=== PATIENT | male | born 1970 | race Caucasian/White ===

== ENCOUNTER 2019-01-28 13:39 | Emergency (ER) | payer OTHER ==
[2019-01-28 14:40] LABS: #Basophils 0.1 thou/uL (0.0-0.2); #Eosinphils 0.3 thou/uL (0.0-0.7); #Lymphocytes 2.1 thou/uL (1.20-3.40); #Monocytes 0.5 thou/uL (0.11-0.59); %Basophils 0.6 % (0.0-1.0); %Eosinophils 3.3 % (0.0-10.0); %Lymphocytes 26.7 % (21.0-51.0); %Monocytes 6.3 % (0.0-10.0); %Neutrophils 63.1 % (42.0-75.0); Hemoglobin 14.1 g/dL (14.0-18.0); Mean Corpuscular HGB CONC 32.9 g/dL (32.0-36.0); Mean Corpuscular Hemoglobin 28.4 pg (27.0-31.0); Mean Corpuscular Volume 86.1 fL (78.0-98.0); Mean Platelet Volume 6.7 fL (7.4-10.4); Platelet Count 211 thou/uL (130-400); RBC Distribution Width 11.7 % (11.5-14.5); Red Blood Cell (RBC) Count 4.96 mill/uL (4.70-6.10); White Blood Cell (WBC) Count 7.9 thou/uL (4.8-10.8)
[2019-01-28 15:02] LABS: Anion Gap 13 mmol/L (10-20); BUN (Urea Nitrogen) 23 mg/dL (8.9-20.6); Calc. Creatinine Clearance 0 mL/min (70-130); Calcium 10.2 mg/dL (7.8-10.44); Carbon Dioxide 26 mmol/L (22-29); Chloride 100 mmol/L (98-107); Estimated GFR-MDRD 34; Glucose 105 mg/dL (70-105); Potassium 4.2 mmol/L (3.5-5.1); Sodium 135 mmol/L (136-145)
[2019-01-28 15:02] LABS: Bacteria/HPF None Seen HPF (None Seen); Bilirubin Negative (Negative); Blood, Urine 2+ (Negative); Calcium Oxalate Crystals 2+ HPF (None Seen); Clarity Clear (Clear); Glucose, Urine (Dipstick) Normal (Negative); Leukocyte Negative Leu/uL (Negative); Mucous/LPF Rare LPF (<2+); Nitrite Negative (Negative); Protein, Urine (Dipstick) 20 mg/dL (Neg-Trace); Squamous Epithelial 0-3 HPF (0-3); Urobilinogen Normal mg/dL (Less than 2)
[2019-01-28] MEDS ORDERED: Morphine 4 MG/ML VIAL ONE (15:39)
[2019-01-28] MEDS ORDERED: Metoclopramide HCl 10 MG/2 ML VIAL ONE (15:40)
--- NOTE | 2019-01-28 16:05 | CT ---
CT OF THE ABDOMEN AND PELVIS WITHOUT IV CONTRAST INDICATION: Left-sided flank pain COMPARISON: None FINDINGS: The lack of IV contrast limits evaluation of the solid organs of the abdomen and pelvis. ABDOMEN: Lung bases: Clear Liver: Fatty infiltration Gallbladder: Normal appearing. Pancreas: Normal. Adrenal glands: Normal. Spleen: Normal. Kidneys: There is mild left hydronephrosis. There is a 4 mm proximal left ureteral calculus. There is a 1.1 cm exophytic hyperdense lesion off the lower pole of the left kidney. There is a 1 cm exophytic hyperdense lesion off the superior pole of the left kidney. There is a small 1.4 cm hypoden se involving superior pole left kidney and cannot further characterize. Retroperitoneum of the upper abdomen: No lymphadenopathy or free fluid is identified. Additional findings: None. Pelvis: Small and large bowel: There is a moderate amount of retained stool within the colon Bladder: Normal. Rectal and perirectal soft tissues:Normal. Reproductive structures: Normal. Free fluid in pelvis: No free fluid is evident. Lymphadenopathy pelvis: No lymphadenopathy is evident. Osseous structures: No acute osseous abnormality. No destructive osteolytic or osteoblastic lesion i s identified. There is scattered degenerative and osteoarthritic changes. IMPRESSION: 1. 4 mm proximal left ureteral calculus with mild left hydronephrosis. 2. Left renal lesions require further evaluation. Renal ultrasound is recommended for additional south acterization. 3. Fatty liver 4. Moderate amount of retained stool within the colon
== END 2019-01-28 17:10 | disposition home or self-care (01) ==
LOC: ERS 13:39
DX: N13.2 Hydronephrosis with renal and ureteral calculous obstruction (principal); F17.210 Nicotine dependence, cigarettes, uncomplicated
CPT/HCPCS: 74176; 80048; 81003; 81015; 85025; 87040; 96361; 96374; 96375; J2270; J2765

== ENCOUNTER 2019-02-20 12:54 | Outpatient (CLI) | payer OTHER ==
--- NOTE | 2019-02-20 13:23 | ULT ---
Renal sonogram HISTORY: Abnormal CT. Hydronephrosis. Cysts. FINDINGS: Right kidney measures up to 11.7 cm. Normal appearance. No hydronephrosis. Liver is hyperec hoic. Left kidney measures up to 11.8 cm. No hydronephrosis. A 1.2 cm cyst projects laterally from the infe rior pole. At the superior pole, and oval cystic lesion measures up to 1.6 cm and contains some internal echoes. Probable septation. Urinary bladder is incompletely distended. IMPRESSION: 2 renal cysts. Within the superior pole cyst, some internal septation is apparent. Please consider short-term follow-up CT kidneys, with and without IV contrast, for evaluation of possible soft tissue component. Hepatic steatosis.
== END 2019-02-20 12:55 | disposition home or self-care (01) ==
LOC: SCSULT 12:54
PROVIDERS: ATTEND Urology
DX: N28.9 Disorder of kidney and ureter, unspecified (principal); N28.1 Cyst of kidney, acquired; K76.0 Fatty (change of) liver, not elsewhere classified
CPT/HCPCS: 76770

== ENCOUNTER 2019-09-25 08:24 | Day surgery (SDC) | payer MEDICARE, OTHER ==
[2019-09-22 10:38] VITALS: BMI 44.3
[2019-09-25 09:23] LABS: #Basophils 0.1 thou/uL (0.0-0.2); #Eosinphils 0.4 thou/uL (0.0-0.7); #Lymphocytes 2.9 thou/uL (1.20-3.40); #Monocytes 0.6 thou/uL (0.11-0.59); #Neutrophils 4.3 thou/uL (1.40-6.50); %Basophils 1.1 % (0.0-1.0); %Eosinophils 4.8 % (0.0-10.0); %Lymphocytes 34.7 % (21.0-51.0); %Monocytes 7.2 % (0.0-10.0); %Neutrophils 52.2 % (42.0-75.0); Hemoglobin 14.9 g/dL (14.0-18.0); Mean Corpuscular HGB CONC 34.1 g/dL (32.0-36.0); Mean Corpuscular Hemoglobin 29.7 pg (27.0-31.0); Mean Corpuscular Volume 87.2 fL (78.0-98.0); Mean Platelet Volume 6.9 fL (7.4-10.4); Platelet Count 232 thou/uL (130-400); RBC Distribution Width 11.7 % (11.5-14.5); Red Blood Cell (RBC) Count 5.01 mill/uL (4.70-6.10); White Blood Cell (WBC) Count 8.3 thou/uL (4.8-10.8)
[2019-09-25 09:45] LABS: Anion Gap 13 mmol/L (10-20); BUN (Urea Nitrogen) 11 mg/dL (8.9-20.6); Calc. Creatinine Clearance 177 mL/min (70-130); Calcium 9.3 mg/dL (7.8-10.44); Carbon Dioxide 20 mmol/L (22-29); Chloride 108 mmol/L (98-107); Estimated GFR-MDRD 76; Glucose 100 mg/dL (70-105); Potassium 4.2 mmol/L (3.5-5.1); Sodium 137 mmol/L (136-145)
[2019-09-25] MEDS ORDERED: Midazolam HCl 2 mg/2 ml Vial ONE ×2 (10:29→11:50)
[2019-09-25] MEDS ORDERED: Metoclopramide HCl 10 MG/2 ML VIAL ONE (11:01)
[2019-09-25] MEDS ORDERED: Rocuronium Bromide 10 MG/ML (10ML VIAL) ONE (11:01)
[2019-09-25] MEDS ORDERED: Glycopyrrolate 0.2 MG/ML 5 ML SYRINGE ONE (11:01)
[2019-09-25] MEDS ORDERED: PROPOFOL 200 MG/20 ML VIAL ONE (11:01)
[2019-09-25] MEDS ORDERED: Ondansetron PF 4 MG/2 ML Vial ONE (11:01)
[2019-09-25] MEDS ORDERED: Ketorolac Tromethamine 30 MG/ML VIAL ONE (11:01)
[2019-09-25] MEDS ORDERED: Lidocaine 1% PF 5 ML VIAL ONE (11:01)
[2019-09-25] MEDS ORDERED: HYDROmorphone 2 MG/ML VIAL ONE (11:50)
[2019-09-25] MEDS ORDERED: Famotidine/PF 20 mg/2ml Vial ONE (12:15)
[2019-09-25] MEDS ORDERED: SUGAMMADEX SODIUM 200 MG/2 ML VIAL ONE (13:37)
[2019-09-25] MEDS ORDERED: Fentanyl 100 MCG/2 ML VIAL ONE ×2 (13:49→14:03)
[2019-09-25] MEDS ORDERED: Tamsulosin HCl 0.4 MG CAP ONE (13:53)
[2019-09-25] MEDS ORDERED: HYDROmorphone 0.5 MG/0.5 ML SYRINGE ONE (13:57)
[2019-09-25] MEDS ORDERED: tiZANidine HCl 4 MG TAB ONE (15:05)
[2019-09-25] MEDS ORDERED: HYDROcodone/Acetaminophen 5/325 mg Tablet ONE (15:16)
--- NOTE | 2019-09-25 15:49 | OP ---
DATE OF PROCEDURE: 09/25/2019 RADIOLOGIC ELECTRONIC SPECIALIST: Netta Mabry PA-C PROCEDURES PERFORMED: Anterior cervical diskectomy C4-C5 and C5-C6, interbody arthrodesis, intervertebral biomechanical device, local morselized autograft, demineralized bone matrix, and anterior titanium instrumentation C5 through C7. DESCRIPTION OF PROCEDURE: The patient was brought to the operating room and intubated. He was positioned supine with head in modest extension on gel-filled donut. Incision was made in the right precervical area and dissected medial to the sternocleidomastoid muscle. We identified the anterior cervical spine, and level was confirmed by x-ray. After identifying the C4-C5 and C5-C6 disks, we placed distraction across the disks, incised them and debrided them. The bony endplates were then decorticated for the purpose of arthrodesis and we ensured a complete decompression of right C5 and right C6 neural foramina. The bony endplates were then decorticated for the purpose of arthrodesis and appropriate-sized intervertebral biomechanical PEEK device was brought into the field. It was filled with demineralized bone matrix and local morselized autograft, and tapped in place securely at C4-C5 and C5-C6. Next, an anterior plate was brought into the field and secured to C4, C5, and C6 using two 14 mm screws at each level. This was then extensively irrigated. MAC hemostasis was secured. The wound was closed in anatomic layers. Job ID: [id number]
== END 2019-09-25 15:50 | disposition home or self-care (01) ==
LOC: SDC 08:24
PROVIDERS: ATTEND Neurological Surgery
PROC: 0RG20A0 Fusion of 2 or more Cervical Vertebral Joints with Interbody Fusion Device, Anterior Approach, Anterior Column, Open Approach (ICD-10-PCS; principal; 2019-09-25)
PROC: 0RG2070 Fusion of 2 or more Cervical Vertebral Joints with Autologous Tissue Substitute, Anterior Approach, Anterior Column, Open Approach (ICD-10-PCS; 2019-09-25)
DX: M47.22 Other spondylosis with radiculopathy, cervical region (principal); Z79.899 Other long term (current) drug therapy; Z91.041 Radiographic dye allergy status
CPT/HCPCS: 20930; 20936; 22551; 22552; 22853 ×2; 76000; 80048; 85025; 93005; C1713 ×2; C1776; 93010; J0690; J1170; J1885; J2001; J2250; J2405; J2704; J2765; J3010; J3490; J7620; S0028

== ENCOUNTER 2019-10-11 09:22 | Outpatient (CLI) | payer MEDICARE, OTHER ==
--- NOTE | 2019-10-11 11:22 | RAD ---
TWO VIEWS CERVICAL SPINE: HISTORY: Post surgery of the cervical spine 2 weeks ago. This is followup evaluation. COMPARISON: None. FINDINGS: C1 to the cervicothoracic junction is seen on the lateral view. Postsurgical changes related to ante rior cervical fusion are noted with an anterior plate and screws transfixing the C4-5 and C5-6 levels . Intradiskal prostheses are present at these levels. The lateral view is mildly rotated, but no de finite hardware complication is appreciated on this exam. There is narrowing of th eC3-4 interverteb ral disk space with osteophyte formation at this level. The vertebral body heights are within normal limits. No fracture or subluxation is seen on the provided images. Prevertebral soft tissues have a normal appearance. IMPRESSION: 1. Postoperative changes related to ACDF at the C4 through C6 levels. 2. Degenerative changes at the C3-4 level. POS: GOPAL
== END 2019-10-11 09:23 | disposition home or self-care (01) ==
LOC: TBSIIMAG 09:22
PROVIDERS: ATTEND Neurological Surgery
DX: M47.22 Other spondylosis with radiculopathy, cervical region (principal); Z98.1 Arthrodesis status
CPT/HCPCS: 72040

== ENCOUNTER 2019-11-29 12:43 | Outpatient (CLI) | payer MEDICARE, OTHER ==
--- NOTE | 2019-11-29 15:37 | RAD ---
THREE VIEWS CERVICAL SPINE: 11/29/19 COMPARISON: 10/11/19. HISTORY: Pain between the shoulder blades with numbness in the biceps. History of prior cervical surgery. Cerv ical radiculopathy. FINDINGS: Three views of the cervical spine shows the patient to be status post anterior fusion of C4 through C 6 with a plate and screws. Disc spacers are seen in the intervening disc spaces. The vertebral bodies demonstrate normal alignment without subluxation. No prevertebral soft tissue swelling is seen. No c hange has occurred compared to the prior exam. Mild intervertebral disc space narrowing is seen at C3 -4. IMPRESSION: Stable postsurgical changes of the cervical spine. POS: EAA
== END 2019-11-29 12:44 | disposition home or self-care (01) ==
LOC: TBSIIMAG 12:43
PROVIDERS: ATTEND Neurological Surgery
DX: M54.12 Radiculopathy, cervical region (principal); Z98.1 Arthrodesis status
CPT/HCPCS: 72040

== ENCOUNTER 2020-04-02 10:50 | Outpatient (CLI) | payer MEDICARE, OTHER ==
--- NOTE | 2020-04-02 11:49 | RAD ---
EXAM: 5 views of the cervical spine HISTORY: Neck and right arm pain. History of cervical fusion COMPARISON: None FINDINGS: AP, lateral, flexion/extension, and open mouth odontoid views of the cervical spine shows n ormal height and alignment of the vertebral bodies and intervertebral discs without fracture or subluxation. The patient is status post anterior fusion of C4-C6 without perihardware lucency. Mild i ntervertebral disc space narrowing and osteophyte formation is seen at C3/4. No prevertebral soft tissue swelling is seen. Alignment is unchanged with flexion and extension. IMPRESSION: Postsurgical changes and mild degenerative changes of the cervical spine as above.
--- NOTE | 2020-04-02 12:35 | MRI ---
MRI Cervical spine without contrast: HISTORY: Cervical radiculopathy. Patient complains of neck pain and right arm pain. History of prior cervical fusion. COMPARISON: 07/21/2019 obtained from [facility]. FINDINGS: The craniocervical junction is unremarkable. No significant cord signal abnormality. Paravertebral soft tissues have a normal appearance and normal signal intensity. Susceptibility artifact is now seen at the C4-C5 and C5-6 levels related to anterior cervical fusion with anterior plate and screws as well as intradiscal prostheses seen at this level on radiographs of the cervical spine obtained on 04/02/2020. C1-2:No significant stenosis. C2-3: There is no disc bulge or disc herniation. The central spinal canal and neural foramina are pat ent. C3-4: Mild disc osteophyte complex with right-sided uncinate process particularly are seen. Mild face t degenerative changes are present. There is slight effacement of the ventral subarachnoid space. Mild to moderate right-sided neural foraminal narrowing is present. Left neural foramen is patent. C4-5: Posterior osteophyte formation is present at this level which narrows the ventral subarachnoid space. Mild right-sided neural foraminal narrowing is present, the left neural foramen is patent. C5-6: Broad-based posterior osteophyte formation is present. This narrows the ventral subarachnoid sp melony and also results in mild to moderate bilateral neural foraminal narrowing greater on the right. There is effacement of ventral subarachnoid space without deformity of the spinal cord. C6-7: There is no significant disc bulge or disc herniation. The central spinal canal and neural fora chante are patent. C7-T1: There is no disc bulge or disc herniation. The central spinal canal and neural foramina are pa tent. IMPRESSION: Postoperative changes related to anterior cervical fusion at the C4-5 and C5-6 levels. There are scat tered degenerative changes in the cervical spine. No high-grade central canal or neural foraminal narrowing is present., However, mild to moderate degrees of neural foraminal narrowing are present on the right at the C3-4 level and bilaterally at the C5-6 level
== END 2020-04-02 10:51 | disposition home or self-care (01) ==
LOC: TBSIIMAG 10:50
PROVIDERS: ATTEND Neurological Surgery
DX: M47.22 Other spondylosis with radiculopathy, cervical region (principal); M48.02 Spinal stenosis, cervical region; Z98.890 Other specified postprocedural states
CPT/HCPCS: 72050; 72141

== ENCOUNTER 2020-07-02 06:35 | Outpatient (CLI) | payer MEDICARE, OTHER ==
[2020-07-02 13:58] LABS: #Basophils 0.1 10x3/uL (0.0-0.2); #Eosinphils 0.4 10x3/uL (0.0-0.5); #Monocytes 0.7 10x3/uL (0.0-1.1); #Neutrophils 3.7 10x3/uL (1.5-8.4); %Basophils 1.5 % (0.0-2.0); %Eosinophils 4.9 % (0.0-6.0); %Lymphocytes 41.1 % (18.0-47.0); %Monocytes 8.4 % (0.0-10.0); %Neutrophils 43.7 % (40.0-75.0); Mean Corpuscular HGB CONC 33.8 G/DL (32.0-36.0); Mean Corpuscular Hemoglobin 29.2 PG (27.0-33.0); Mean Corpuscular Volume 86.4 fl (80.0-100.0); Mean Platelet Volume 9.7 fl (7.4-10.4); Platelet Count 266 10x3/uL (130-400); Red Blood Cell (RBC) Count 5.14 10x6/uL (4.40-5.80); White Blood Cell (WBC) Count 8.6 10x3/uL (4.5-11.0)
[2020-07-03 07:48] LABS: SARS-CoV-2 MS2 Positive; SARS-CoV-2 N Gene Negative; SARS-CoV-2 S Gene Negative; SARS-CoV-2 by NAA Not Detected (NotDetected); SARS-CoV-2 orf1ab Negative
== END 2020-07-02 06:36 | disposition home or self-care (01) ==
LOC: LABBT 06:35
PROVIDERS: ATTEND Orthopaedic Surgery Hand Surgery
DX: Z01.812 Encounter for preprocedural laboratory examination (principal); G56.01 Carpal tunnel syndrome, right upper limb; G56.21 Lesion of ulnar nerve, right upper limb; G56.11 Other lesions of median nerve, right upper limb; Z20.828 Contact with and (suspected) exposure to other viral communicable diseases
CPT/HCPCS: 85025; U0003; 87635

== ENCOUNTER 2020-07-05 08:20 | Day surgery (SDC) | payer MEDICARE, OTHER ==
[2020-07-04 12:07] VITALS: BMI 29.9
[2020-07-05] MEDS ORDERED: Ketorolac Tromethamine 30 MG/ML VIAL ONE (09:32)
[2020-07-05] MEDS ORDERED: Ondansetron PF 4 MG/2 ML Vial ONE (09:32)
[2020-07-05] MEDS ORDERED: Lidocaine 1% PF 5 ML VIAL ONE (09:32)
[2020-07-05] MEDS ORDERED: PROPOFOL 200 MG/20 ML VIAL ONE (09:32)
[2020-07-05] MEDS ORDERED: Dexamethasone 20 MG/5 ML VIAL ONE (09:32)
[2020-07-05] MEDS ORDERED: Fentanyl 100 MCG/2 ML VIAL ONE ×4 (10:26→14:23)
[2020-07-05] MEDS ORDERED: Midazolam HCl 2 mg/2 ml Vial ONE (10:26)
[2020-07-05] MEDS ORDERED: Betamet Acet/Betamet Na Ph 30 MG/5 ML VIAL ONE ×2 (10:29)
[2020-07-05] MEDS ORDERED: Bacitracin Zinc Ointment 30 gm TUBE ONE (10:29)
[2020-07-05] MEDS ORDERED: Sodium Chloride 0.9% 10 ML ONE (10:32)
[2020-07-05] MEDS ORDERED: Bupivacaine PF 0.5% 30 ML VIAL ONE (11:17)
[2020-07-05] MEDS ORDERED: Morphine 2 MG/ML VIAL ONE ×2 (14:47→16:00)
[2020-07-05] MEDS ORDERED: HYDROcodone/Acetaminophen 5/325 mg Tablet ONE (16:00)
--- NOTE | 2020-07-06 02:53 | OP ---
DATE OF PROCEDURE: 07/05/2020 PREOPERATIVE DIAGNOSES: Right carpal tunnel syndrome, right cubital tunnel syndrome, and right pronator tunnel syndrome. POSTOPERATIVE DIAGNOSES AND FINDINGS: 1. Tight transverse carpal ligament over the median nerve with early stippling. No allograft formation. 2. Very tight median nerve at three spots, lacertus, the pronator, and the superficialis arch with fascial compression and its attachment in the central portion of the flexor pronator muscle. 3. Cubital tunnel seen with ulnar nerve compression in two spots, near flattening in the center of the primary cubital tunnel as well as in the ulnar arm approximately 5 cm proximal to the medial epicondyle. There was also marked olecranon bursitis seen. PROCEDURES PERFORMED: 1. Right olecranon radical bursectomy. 2. Right carpal tunnel release. 3. Right pronator tunnel release. 4. Right cubital tunnel release with subcutaneous transposition. COMPLICATIONS: None. SPECIMEN REMOVED: Right olecranon bursa sent to Pathology. ESTIMATED BLOOD LOSS: Less than or equal to 20 cc. COMPLICATIONS: None. DESCRIPTION OF PROCEDURE: After successful general endotracheal anesthesia, Mr. Rick Dorado had the limb prepped and draped. We outlined three incisions, a central midline in line with the olecranon, slightly curved around the medial aspect of the olecranon tip, and then proximal to the olecranon by 12 cm first incision for the cubital tunnel release. Secondly, we outlined an incision along the Moreno's cardinal line in his distal edge and 5 mm distal to palmar wrist flexion crease for approach to the carpal canal. Finally, we outlined a curvilinear incision over the major portion of his very integrated tattoo in his proximal third forearm for pronator tunnel release. First, the limb was exsanguinated and tourniquet inflated to 250 mmHg pressure. Then with a sterile tourniquet intact, the outline incision we entered, first a carpal tunnel release incision. We carried this through skin and subcutaneous tissue, we identified the palmar fascia. Palmar fascia was then from the underlying fascia and then we were able to identify. The patient then had carpal tunnel release completed and this wound was closed over 3 mL Celestone drip technique. We then made a curvilinear lazy-S incision on the proximal third forearm for harvesting the pronator teres. Carried through the skin and subcutaneous tissue. The lacertus was identified. It was opened easily with a tenotomy scissor. Then, tenotomy scissor was used to identify, between the radial artery and the superficial radial nerve and its vessels, the patient's superficial head of the pronator and we released this in a Z cut step-boyer lengthening of only the tendon without muscle damage. Once this was done, we backed the proximal wound, removed more lacertus with the tenotomy scissors. We protected the nerve during this process. Then, we finished dissecting from the sidewall of the flexor pronator musculature origin and at this time, we began where we left off in terms of dissection and excision of any constricting structures. Once we had finished this, we then noticed that the wound did not close. So, with the tourniquet released, we obtained hemostasis and closed the pronator incision. This was done with a combination of Vicryl, nylon 0, and other modalities until the wounds were completely closed. Then, we exsanguinated the limb, inflated the tourniquet to 250 mmHg pressure, and would leave us with a total tourniquet time of 37 minutes longer. We carried the outlined skin incision through skin and subcutaneous tissue until we reached the deep dermis. We then used Veress technique and we localized the ulnar nerve high in the proximal one-third of the wound. We then released it with small fascial bands high in the mid arm, released it from in the more thick fascial bands in the final dissection until we had released the entire nerve and it was freed under loupe magnification. The patient then had the wounds, the ulnar nerve repair for some tourniquet, this was because it was slightly flattened in the area just proximal to the medial epicondyle. Once this was done, the patient now had a complete release of all possible pinning soft tissue including distal to the elbow. This includes the pronator site, the carpal tunnel, and the subcutaneous transposition. Job ID: [id number]
== END 2020-07-05 16:50 | disposition home or self-care (01) ==
LOC: SDC 08:20
PROVIDERS: ATTEND Orthopaedic Surgery Hand Surgery
PROC: 01N50ZZ Release Median Nerve, Open Approach (ICD-10-PCS; principal; 2020-07-05)
PROC: 0MB30ZZ Excision of Right Elbow Bursa and Ligament, Open Approach (ICD-10-PCS; 2020-07-05)
PROC: 01N40ZZ Release Ulnar Nerve, Open Approach (ICD-10-PCS; 2020-07-05)
PROC: 01N50ZZ Release Median Nerve, Open Approach (ICD-10-PCS; 2020-07-05)
DX: M70.21 Olecranon bursitis, right elbow (principal); G56.01 Carpal tunnel syndrome, right upper limb; G56.21 Lesion of ulnar nerve, right upper limb; G56.11 Other lesions of median nerve, right upper limb; F17.210 Nicotine dependence, cigarettes, uncomplicated; Z79.899 Other long term (current) drug therapy; Z91.041 Radiographic dye allergy status; Z20.828 Contact with and (suspected) exposure to other viral communicable diseases
CPT/HCPCS: 24105; 64708; 64718; 64721; 85025; 88304; J2270; U0003; 87635; J0690; J0702; J1100; J1885; J2250; J2405; J2704; J3010; J3490; S0020